=== PATIENT | female | born 1980 | race Caucasian/White ===

== ENCOUNTER 2017-05-20 17:42 | Inpatient (IN) | payer BC, OTHER ==
[~2017-05-20] VITALS: Ht 167.6 cm; Wt 81.6 kg
[~2017-05-20 17:42] MED LIST: GLAT20KI3 SQ
[2017-05-20 18:32] VITALS: BP_SYST 117
--- NOTE | 2017-05-20 20:39 | NUR ---
Patient to bonnie for evaluation. Report given to Ade BENITEZ.
--- NOTE | 2017-05-20 20:43 | NUR ---
Patient to ER C/O MS flare up. States that she was diagnosed with MS in 2003 and is under medical treatment at [facility]. Patient states that she has left side lateral weakness and numbness, states that usualy she is admitted for steroids drip. AAOx4, unlabored breathing, no signs of acute distress.
--- NOTE | 2017-05-20 21:32 | NUR ---
ER MD Dupont at bedside for evaluation
[2017-05-20] MEDS ORDERED: methylPREDNISolone SOD SUCC/PF 62.5 MG/ML VIAL IVP ONE (21:45)
[2017-05-20] MEDS ORDERED: HYDROmorphone 1 MG INJ. 1 MG/ML AMPUL IVP ONE (21:45)
--- NOTE | 2017-05-20 21:57 | NUR ---
Engineering Manager Electronics at bedside for blood draw. Patient identified x2.
--- NOTE | 2017-05-20 22:08 | NUR ---
# 22 gauge angiocath placed to left hand. Use of asceptic technique. Opsite placed over site. Blood return noted. Flushed with 10 cc of normal saline. No evidence of infiltration noted. Patient tolerated well.
[2017-05-20 22:17] LABS: BASOPHILS % (AUTO) 0.4 % (0.0-2.0); EOSINOPHILS # (AUTO) 0.1 K/uL (0.0-0.4); EOSINOPHILS % (AUTO) 0.7 % (0.0-4.0); HEMATOCRIT 43.8 % (36-48); HEMOGLOBIN 14.6 g/dL (12.0-16.0); LYMPHOCYTES # (AUTO) 3.7 K/uL (1.0-5.5); LYMPHOCYTES % (AUTO) 36.6 % (20.5-51.5); MEAN CORPUSCULAR HEMOGLOBIN 31 pg (27-31); MEAN CORPUSCULAR HGB CONC 34 % (32-36); MEAN CORPUSCULAR VOLUME 91 fL (79.0-98.0); MONOCYTES # (AUTO) 0.5 K/uL (0.0-1.0); MONOCYTES % (AUTO) 4.8 % (1.7-9.3); NEUTROPHILS # (AUTO) 5.9 K/uL (1.8-7.7); NEUTROPHILS % (AUTO) 57.5 % (40.0-70.0); PLATELET COUNT (AUTO) 286 K/uL (130-430); RED CELL DISTRIBUTION WIDTH 13.2 % (9.0-15.0); WHITE BLOOD COUNT (AUTO) 10.2 K/uL (4.8-10.8)
--- NOTE | 2017-05-20 23:16 | NUR ---
Patient moved to bed 7
[2017-05-20 23:37] LABS: CALCIUM 8.6 mg/dL (8.4-11.0); CREATININE 0.75 mg/dL (0.55-1.30); POTASSIUM 3.8 mmol/L (3.5-5.1)
[2017-05-20 23:42] LABS: TOTAL BILIRUBIN 0.4 mg/dL (0.0-1.0); TOTAL PROTEIN, SERUM 7.5 g/dL (6.4-8.3)
[2017-05-20] MEDS ORDERED: ZOLP10TA2 PO (23:47)
[2017-05-20] MEDS ORDERED: DOCU283E RC (23:47)
[2017-05-20] MEDS ORDERED: VITD400 PO (23:47)
[2017-05-20 23:57] LABS: ERYTHROCYTE SEDIMENTATION RATE 3 MM/HR (0-20)
--- NOTE | 2017-05-21 00:07 | NUR ---
Patient will be admitted to care of DR PATEL. Admitted to MS IN unit. Will go to room 135. Belongings list completed. Summary report printed. Report will be given at bedside.
--- NOTE | 2017-05-21 00:14 | NUR ---
Transfer to [facility] via ACLS protocol. Licensed nurse present. IV present no signs or symptoms of infiltration.
[2017-05-21] MEDS ORDERED: DIPHENHYDRAMINE INJ 50 MG/ML VIAL IVP PRN (00:15)
[2017-05-21] MEDS ORDERED: methylPREDNISolone SOD SUCC 500 MG/VIAL (Solu-MEDROL) IV ONE (00:15)
[2017-05-21] MEDS ORDERED: DOCUSATE SODIUM 283 MG RC PRN (00:15)
--- NOTE | 2017-05-21 00:30 | NUR ---
Admission Note Pt is A/Ox4, with hx of MS. Pt denies any pain or sob at this time. All new orders discussed with pt. MD Grissom at bedside discussing plan of care with pt. IV intact. VSS. Inventory of belongings completed. Plan of care discussed with pt, pt verbalized understanding. Informed pt that there is a consult for Neuro for this AM. Pt oriented to room, phone, and call light. Safety measures in place, side rails up x2, with bed in lowest, locked position, bed alarm on at all times. Call light in hand. Will continue to monitor.
--- NOTE | 2017-05-21 00:41 | NUR ---
KIRSTEN CON: DATE:05/21/17 TIME:0700 REASON FOR CONS:MS KIRSTEN REQ:DR.HAKAK [place]:ONE[place]
[2017-05-21 01:06] LABS: BILIRUBIN,URINE NEGATIVE (NEGATIVE); BLOOD, URINE NEGATIVE (NEGATIVE); CLARITY/URINE CLEAR (CLEAR); COLOR,URINE YELLOW (YELLOW); GLUCOSE,URINE NEGATIVE (NEGATIVE); KETONES,URINE NEGATIVE (NEGATIVE); LEUKOCYTE ESTERASE ,URINE NEGATIVE (NEGATIVE); NITRITE, URINE NEGATIVE (NEGATIVE); PROTEIN URINE NEGATIVE (NEGATIVE); UROBILINOGEN,URINE 0.2 (0.2-1.0)
[2017-05-21] MEDS: ZOLPIDEM TARTRATE 5 MG TABLET PO PRN ×2 (01:09→23:04)
--- NOTE | 2017-05-21 01:15 | NUR ---
Sleep aid/Nausea Pt requested sleep aid. Pt medicated with Ambien 10mg po as ordered. Pt also requested Zofran for nausea. Covering RN notified and medicated pt with Zofran 4mg IVP for nausea. Snack provided. All needs met at this time. Call light in hand. Will continue to monitor.
[2017-05-21] MEDS: ONDANSETRON HCL 4 MG/2 ML VIAL IVP PRN ×4 (01:17→23:04)
[2017-05-21 01:25] LABS: BARBITURATE, URINE NEGATIVE (NEG <=200); BENZODIAZEPINE, URINE NEGATIVE (NEG <=150); CANNABINOID, URINE NEGATIVE (NEG <=50); COCAINE, URINE NEGATIVE (NEG <=150); METHAMPHETAMINES SCREEN,URINE NEGATIVE (NEG <=500); URINE AMPHETAMINE NEGATIVE (NEG <=500); URINE METHADONE NEGATIVE (NEG <=200)
[2017-05-21 01:26] LABS: OPIATE, URINE POSITIVE (NEG <=100); PHENCYCLIDINE SCREEN,URINE NEGATIVE (NEG <=25); UR TRICYCLIC ANTIDEPRESSANTS NEGATIVE (NEG <=300); URINE OXYCODONE SCREEN NEGATIVE (NEG <=100); URINE PROPOXYPHENE SCREEN NEGATIVE (NEG <=300)
--- NOTE | 2017-05-21 03:30 | NUR ---
PATIENT RESTING: Patient resting quietly. No acute distress noted. Vital signs within normal range.
[2017-05-21] MEDS: methylPREDNISolone SOD SUCC/PF 62.5 MG/ML VIAL IVP SCH ×6 (04:34→23:04)
--- NOTE | 2017-05-21 06:45 | NUR ---
Closing Notes Pt is resting comfortably in bed with no acute distress noted. IV site intact. VSS. All needs met throughout shift. Will endorse care to am nurse. Call light within reach.
[2017-05-21] MEDS: HYDROmorphone 1 MG INJ. 1 MG/ML AMPUL IVP PRN ×5 (07:41→22:19)
[2017-05-21 08:00] VITALS: BP_SYST 128
--- NOTE | 2017-05-21 08:00 | NUR ---
PATIENT A/OX4. NO SIGNS OF DISTRESS NOTED. INSTRUCTED PATIENT TO USE CALL LIGHT FOR NEEDS, BED LOCKED AT THE LOWEST POSITION, BED ALARM IS ON.
[2017-05-21] MEDS ORDERED: GLATIRAMER ACETATE 20 MG/ML SQ SCH (09:00)
--- NOTE | 2017-05-21 10:22 | NUR ---
Patient states that she is not ready to go home. she is no means for transportation to go back home.
[2017-05-21] MEDS: CHOLECALCIFEROL (VITAMIN D-3) 400 UNIT TABLET PO SCH (10:33)
--- NOTE | 2017-05-21 11:52 | NUR ---
Patient states that she kneeled down at the bathroom door. No obvious signs of injuries were noted after checking the body.
--- NOTE | 2017-05-21 12:40 | NUR ---
patient is c/o nausea and vomiting. patient is sat up to prevent aspiration.
[2017-05-21 13:25] VITALS: BP_SYST 133
--- NOTE | 2017-05-21 14:58 | NUR ---
Patient has a shower in a bathroom of 108c. No signs of distress noted.
--- NOTE | 2017-05-21 16:15 | NUR ---
Patient is moved to 103c
[2017-05-21] MEDS ORDERED: DEXTROSE 50% JECT 50 ML DISP.SYRIN IVP PRN (17:45)
[2017-05-21] MEDS ORDERED: PANTOPRAZOLE SODIUM 40 MG/VIAL (PROTONIX) IVP ONE (18:15)
--- NOTE | 2017-05-21 18:30 | NUR ---
Patient is eating dinner, with friends at bedside.
[2017-05-21] MEDS: DIPHENHYDRAMINE INJ 50 MG/ML VIAL IVP PRN (18:34)
[2017-05-21 18:49] VITALS: BP_SYST 131
--- NOTE | 2017-05-21 19:25 | NUR ---
DR. ORDAZ TALKING PATIENT AT BEDSIDE
--- NOTE | 2017-05-21 19:46 | NUR ---
INITIAL NOTE Patient resting on the bed. No acute distress. Respiration even and unlabored. AA x 4. Skin warm and dry to touch. SL intact to left hand, no redness, no swelling. Discussed the safety issue, use call light when need help, and plan of care, verbally understanding. Friend at bedside. Safety measure maintained. Bed in low position, side rails up. Call light within reached. Will continue to monitor.
[2017-05-21 20:00] VITALS: BP_SYST 114
[2017-05-21] MEDS: INSULIN REGULAR, HUMAN 100 UNITS/ML, 10 ML VIAL (novoLIN R) SUBCUT PRN (21:19)
--- NOTE | 2017-05-21 21:23 | NUR ---
RP=248, 6 UNIT OF REGULAR INSULIN GIVEN
--- NOTE | 2017-05-21 22:24 | NUR ---
DILAUDID GIVEN Patient c/o bilateral legs pain 05/06, Dilaudid 1mg IVP given as ordered. No acute distress. Ambulated to bathroom. Safety measure maintained. Call light within reached. Continue to monitor.
--- NOTE | 2017-05-21 23:04 | NUR ---
ZOFRAN AND AMBIEN GIVEN Patient requested Zofran and stated "I want my Zofran because Solu-Medrol make me nausea." Patient also requested Ambien. Zofran 4mg IVP and Ambien 10mg PO given. No acute distress. Safety measure maintained. Bed in low position, side rails up. Call light within reached. Continue to monitor.
--- NOTE | 2017-05-21 23:29 | NUR ---
REPORT GIVEN Released care, report given to EMMANUEL Anaya. Patient resting on the bed and talking to the phone. No acute distress. VS stable. SL intact to left hand, no redness, no swelling. Safety measure maintained. Bed in low position, side rails up. Call light within reached. Will continue the plan of care.
--- NOTE | 2017-05-21 23:30 | NUR ---
RN Note Assumed nursing care of pt after report was obtained from nurse Chrissie. Pt is fully awake, alert and oriented x4. Speech is clear and pt is able to make her needs known. No c/o pain or discomfort at this time. Saline lock is intact in left hand. Skin is warm and dry to touch. No signs or symptoms of hypoglycemia or hyperglycemia noted.
[2017-05-22 00:30] VITALS: BP_SYST 105
[2017-05-22] MEDS: HYDROmorphone 1 MG INJ. 1 MG/ML AMPUL IVP PRN ×5 (01:23→21:10)
--- NOTE | 2017-05-22 01:23 | NUR ---
Pain Medication Dilaudid 1mg was given IV per pt's request for c/o lt leg pain with relief. Addendum: 05/22/17 at 0157 by Jaclyn Bella RN Bed alarm on and three side rails up after IV Dilaudid given. Pt was instructed to call for assistance before getting out of bed because she may become dizzy from the pain medication given. Pt verbalized understanding.
[2017-05-22] MEDS: DIPHENHYDRAMINE INJ 50 MG/ML VIAL IVP PRN (02:16)
--- NOTE | 2017-05-22 02:16 | NUR ---
Itching Benadryl 25mg was given IV for c/o itching with relief.
[2017-05-22] MEDS: methylPREDNISolone SOD SUCC/PF 62.5 MG/ML VIAL IVP SCH ×3 (02:49→10:46)
[2017-05-22 04:23] VITALS: BP_SYST 86
--- NOTE | 2017-05-22 05:00 | NUR ---
Rounds Pt is sleeping without any distress noted. Fall and safety precautions are in place.
[2017-05-22] MEDS: INSULIN REGULAR, HUMAN 100 UNITS/ML, 10 ML VIAL (novoLIN R) SUBCUT PRN ×2 (06:18→21:12)
[2017-05-22 06:42] LABS: CALCIUM 8.9 mg/dL (8.4-11.0); CREATININE 0.75 mg/dL (0.55-1.30); POTASSIUM 4.2 mmol/L (3.5-5.1)
[2017-05-22] MEDS: ONDANSETRON HCL 4 MG/2 ML VIAL IVP PRN ×4 (06:47→21:09)
--- NOTE | 2017-05-22 07:00 | NUR ---
Closing Note Pt is awake and not in any distress. All pt's needs were attended to. No fall or injury noted this shift. Accucheck 153 this AM and 2 units Regular Insulin given SQ. Skin remains warm and dry to touch. Will endorse to day shift nurse.
[2017-05-22] MEDS: PANTOPRAZOLE SODIUM 40 MG/VIAL (PROTONIX) IVP SCH (07:39)
--- NOTE | 2017-05-22 07:49 | NUR ---
PATIENT A/OX4. NO SIGNS OF DISTRESS NOTED. INSTRUCTED PATIENT TO USE CALL LIGHT FOR NEEDS, BED LOCKED AT THE LOWEST POSITION, BED ALARM IS ON.
[2017-05-22] MEDS ORDERED: LORazepam 2 MG/ML VIAL IVP ONE ×2 (08:00→13:00)
[2017-05-22 11:22] VITALS: BP_SYST 114
--- NOTE | 2017-05-22 13:00 | NUR ---
PATIENT STATES 1MG ATIVAN IVP IS NOT CALMING HER DOWN. DR. PATEL IS INFORMED, AND ANOTHER 1MG ATIVAN IVP IS ORDERED AND GIVEN.
--- NOTE | 2017-05-22 13:05 | NUR ---
PATIENT TO MRI SCAN. STATES SHE IS CALMER AFTER 2MG ATIVAN IVP.
[2017-05-22] MEDS: LORazepam 2 MG/ML VIAL ONE ×3 (13:07→13:28)
[2017-05-22] MEDS ORDERED: GADOPENTETATE DIMEGLUMINE 15 ML VIAL IV ONE (13:08)
--- NOTE | 2017-05-22 13:30 | NUR ---
DR. ORDAZ ORDERED MRI OF THE SPINE. WILL CARRY OUT.
--- NOTE | 2017-05-22 16:15 | NUR ---
patient has returned from MRI scan. No signs of distress noted. Will continue to monitor.
[2017-05-22] MEDS: CHOLECALCIFEROL (VITAMIN D-3) 400 UNIT TABLET PO SCH (16:37)
[2017-05-22 17:00] VITALS: BP_SYST 120
[2017-05-22] MEDS ORDERED: ACETAMINOPHEN 325 MG TABLET PO PRN (18:30)
--- NOTE | 2017-05-22 19:56 | NUR ---
Initial PM Note Pt was received lying in bed fully AAO x4. Speech is clear and pt is able to make her needs known. No c/o pain or discomfort. Skin is warm and dry to touch. No signs or symptoms of hypoglycemia or hyperglycemia noted. Saline lock in left wrist is without any signs of infiltration. Fall and safety precautions are in place.
[2017-05-22 20:00] VITALS: BP_SYST 115
--- NOTE | 2017-05-22 21:07 | NUR ---
Blood Sugar Accucheck 158 and 2 units Regular Insulin given SQ. Skin remains warm and dry to touch. Pt ate 100% HS snacks.
--- NOTE | 2017-05-22 21:10 | NUR ---
Pain and Nausea Medications Dilaudid 1mg and Zofran 4mg were given IV per pt's request for c/o left leg pain and nausea with relief. Bed alarm on and three side rails up for pt's safety. Pt was instructed to call for assistance before getting out of bed because she may become dizzy from the pain medication given. Pt verbalized understanding.
[2017-05-23 00:20] VITALS: BP_SYST 132
[2017-05-23] MEDS: HYDROmorphone 1 MG INJ. 1 MG/ML AMPUL IVP PRN ×5 (00:52→22:07)
--- NOTE | 2017-05-23 00:52 | NUR ---
Pain Medication Dilaudid 1mg given IV per pt's request for c/o left leg pain with relief. Bed alarm on and three side rails up for pt's safety. Pt was instructed to call for assistance before getting out of bed because she may become dizzy from the pain medication given. Pt verbalized understanding.
[2017-05-23] MEDS: ZOLPIDEM TARTRATE 5 MG TABLET PO PRN ×2 (01:27→23:34)
--- NOTE | 2017-05-23 01:27 | NUR ---
Insomnia Ambien 10mg given po per pt's request for c/o insomnia with good effect.
--- NOTE | 2017-05-23 03:00 | NUR ---
Rounds Pt is sleeping without any distress noted. Fall and safety precautions are in place.
[2017-05-23 04:45] VITALS: BP_SYST 93
--- NOTE | 2017-05-23 05:00 | NUR ---
Rounds Pt is sleeping comfortably in bed.
--- NOTE | 2017-05-23 06:21 | NUR ---
Closing Note Pt is awake and not in any distress. All pt's needs were attended to. No fall or injury noted this shift. Will endorse to day shift nurse.
[2017-05-23] MEDS: PANTOPRAZOLE SODIUM 40 MG/VIAL (PROTONIX) IVP SCH (10:09)
[2017-05-23] MEDS: CHOLECALCIFEROL (VITAMIN D-3) 400 UNIT TABLET PO SCH (10:17)
[2017-05-23 10:20] VITALS: BP_SYST 132
[2017-05-23] MEDS: ONDANSETRON HCL 4 MG/2 ML VIAL IVP PRN ×3 (12:24→22:18)
[2017-05-23] MEDS: methylPREDNISolone SOD SUCC/PF 62.5 MG/ML VIAL IVP SCH ×2 (12:24→20:22)
[2017-05-23 16:00] VITALS: BP_SYST 130
[2017-05-23] MEDS ORDERED: IBUPROFEN 400 MG TABLET PO PRN ×2 (17:30)
--- NOTE | 2017-05-23 18:50 | NUR ---
GOLYTELY ADMINISTERED LATE DUE TO PT INSISTING ON GOING TO HER VEHICLE OUTSIDE IN PARKING LOT PRIOR TO STARTING GOLYETLY.
[2017-05-23 20:20] VITALS: BP_SYST 124
--- NOTE | 2017-05-23 20:30 | NUR ---
opening note Report was endorsed to me by day nurse at bedside. Patient is awake and laying in bed. No signs of distress. Breathing is equal and unlabored. educated on colonoscopy prep fluid, and call light for assitance. Patient is refusing bed alarm at this time. Will continue to monitor.
--- NOTE | 2017-05-23 22:00 | NUR ---
Medication Patients scheduled medication given. Patient is also complains of pain medicated as order please see emar. Patient educated recreation program coordinator light for safety patient is being non compliant with call light. Patient is also refusing bed alarm to at this time. patients breathing is equal and non labored. Will continue to monitor.
--- NOTE | 2017-05-23 23:35 | NUR ---
Medication Patient is requesting sleeping medication medicated as order. Patient educated on safety and call light but is being on compliant with call light. Patient shows no signs of labored breathing. Will continue to monitor. Patient is close to nurses station.
[2017-05-24] VITALS (7 sets, daily range): BP systolic 100–130
[2017-05-24] MEDS: HYDROmorphone 1 MG INJ. 1 MG/ML AMPUL IVP PRN ×5 (02:03→20:19)
--- NOTE | 2017-05-24 02:08 | NUR ---
Pain medication Patient is requesting pain medication medicated as ordered. Patient shows no signs of distress breathing is equal and non labored. Educated patient tax commissioner light and safety patient is refusing bed alarm. Will continue to monitor.
--- NOTE | 2017-05-24 04:21 | NUR ---
MEDICATION Patients scheduled medication given per order please see EMAR patient is awake and laying in bed.Patient is refusing bed alarm at this time , breathing is equal and non labored. Patient has call light with her. will continue to monitor
[2017-05-24] MEDS: methylPREDNISolone SOD SUCC/PF 62.5 MG/ML VIAL IVP SCH ×3 (04:29→20:22)
[2017-05-24] MEDS: DIPHENHYDRAMINE INJ 50 MG/ML VIAL IVP PRN ×2 (04:38→21:53)
--- NOTE | 2017-05-24 06:35 | NUR ---
CLOSING NOTE/ACCU CHECK patients blood sugar checked please see EMAR.Patient is laying in bed with eyes closed visible chest rise and fall. breathing is non labored, and even. no signs of distress at this time. Patient has call light with her, refusing bed alarm, bed is in lowest position close to nursing station. Will endorse report to day nurse at bed side.
[2017-05-24 07:25] LABS: CALCIUM 8.4 mg/dL (8.4-11.0); CREATININE 0.79 mg/dL (0.55-1.30); POTASSIUM 3.8 mmol/L (3.5-5.1)
--- NOTE | 2017-05-24 08:00 | NUR ---
note PT ASLEEP, DOES NOT WANT TO BE DISTURBED AT THIS TIME. STATES THIS IS THE FIRST TIME SHE HAS BEEN ABLE TO SLEEP THROUGH THE NIGHT. NO BREAKFAST TRAY, STATES SHE DOES NOT WANT ONE. NO SOB/RESP DISTRESS OR PAIN/DISCOMFORT NOTED AT THIS TIME. IV IN LEFT WRIST INTACT AND PATENT AT THIS TIME. BED IN LOW POSITION AT THIS TIME. CALL LIGHT WITHIN REACH.
[2017-05-24] MEDS: PANTOPRAZOLE SODIUM 40 MG/VIAL (PROTONIX) IVP SCH (09:13)
[2017-05-24] MEDS: CHOLECALCIFEROL (VITAMIN D-3) 400 UNIT TABLET PO SCH (09:14)
[2017-05-24] MEDS: ONDANSETRON HCL 4 MG/2 ML VIAL IVP PRN ×2 (09:22→15:50)
--- NOTE | 2017-05-24 10:00 | NUR ---
NOTE PT DROWSY AND SLEEPY IN BED, EASILY AROUSABLE. PT REC'D PAIN IVP MEDICATION REQUESTED. NO NEEDS NOTED AT THIS TIME. CALL LIGHT WITHIN REACH.
--- NOTE | 2017-05-24 12:30 | NUR ---
NOTE PT AMBULATING IN THE ROOM, AAOX4. NO SOB/RESP DISTRESS NOTED. PAIN MEDICATION REQUESTED AND WAS GIVEN AT THIS TIME. PT'S FATHER AT BEDSIDE AT THIS TIME VISITING. PT SITTING AT SIDE OF BED AND EATING HER LUNCH TRAY. NO NEEDS NOTED. CALL LIGHT WITHIN REACH.
[2017-05-24] MEDS ORDERED: OXYCODONE/ACETAMINOPHEN 5-325 TABLET PO PRN (13:45)
--- NOTE | 2017-05-24 13:45 | NUR ---
NOTE DR PATEL AT PT'S BEDSIDE. QUESTIONS/CONCERNS FROM PT AND PT'S FATHER WERE ANSWERED AT THIS TIME. PT SITTING UP IN BED FINISHING HER LUNCH AND NO NEEDS NOTED AT THIS TIME. CALL LIGHT WITHIN REACH.
[2017-05-24] MEDS ORDERED: DOCUSATE SODIUM 250 MG CAPSULE PO ONE (14:15)
--- NOTE | 2017-05-24 14:56 | NUR ---
NEURO SURGEON CONSULT CALLED TO DR COOMBS, DR ELDER RADIO INTERFERENCE INVESTIGATOR RE; DISC PROTRUSION. SPOKE TO KATHLEEN
--- NOTE | 2017-05-24 15:15 | NUR ---
NOTE DR ELDER WHO IN COVERING FOR DR COOMBS CALLED AND UPDATE ON PT'S STATUS WAS GIVEN. DR ELDER WILL COME TO SEE PT TOMORROW. PT WAS NOTIFIED AT THIS TIME. PT HAS 2 VISITORS AT BEDSIDE AT THIS TIME. CALL LIGHT WITHIN REACH.
--- NOTE | 2017-05-24 17:15 | NUR ---
NOTE PT SITTING UP IN BED TALKING ON THE PHONE. NO SOB/RESP DISTRESS OR PAIN/DISCOMFORT NOTED. CALL LIGHT WITHIN REACH.
--- NOTE | 2017-05-24 18:10 | NUR ---
note PT SITTING UP IN BED EATING HER DINNER AND TALKING ON THE PHONE. PAIN TOLERABLE AT THIS TIME. NO SOB/RESP DISTRESS NOTED. PT AMBULATES IN ROOM WITH STEADY GAIT. NO NEEDS NOTED. CALL LIGHT WITHIN REACH.
--- NOTE | 2017-05-24 19:15 | NUR ---
change of shift.pt.presents stable status.no c/o ,nausea.room air:o2 breathing pattern stable. call ligth w/in the pt's reach.
--- NOTE | 2017-05-24 20:00 | NUR ---
pt.assessed.v/s assessed.values w/in normal limits.i conveyed to pt.snacks are available pt.pita kirby. i have provided the snacks.
--- NOTE | 2017-05-24 20:30 | NUR ---
pt.assessed.blood glucose assessed;155mg/dl.pt.requested pain medication:i have administered: dilaudid:1mg ivp.call light w/in the pt's reach.
[2017-05-24] MEDS: DOCUSATE SODIUM 250 MG CAPSULE PO SCH (20:34)
--- NOTE | 2017-05-24 21:00 | NUR ---
2100p medications administered.pt.requesting fabi.will f/u w/the request.no other request@this hour.
[2017-05-24] MEDS: ZOLPIDEM TARTRATE 5 MG TABLET PO PRN (21:54)
[2017-05-24] MEDS: INSULIN REGULAR, HUMAN 100 UNITS/ML, 10 ML VIAL (novoLIN R) SUBCUT PRN (21:59)
--- NOTE | 2017-05-24 22:00 | NUR ---
pt.assessed.i have administered insulin:2units;regular per sliding scale;155mg/dl. pt.had entered the rest room earlier and i had to attend to another pt.delay in insulin administration.
--- NOTE | 2017-05-25 | NUR ---
pt.assessed.v/s assessed:values w/in normal limits:pt.re-positioned self.no c/o pain,nausea. no distress/discomfort manifested.call light w/in the pt's reach.
[2017-05-25 00:23] VITALS: BP_SYST 110
[2017-05-25] MEDS: HYDROmorphone 1 MG INJ. 1 MG/ML AMPUL IVP PRN ×3 (01:44→11:31)
--- NOTE | 2017-05-25 01:45 | NUR ---
pt.requested dilaudid:.i have administered dilaudid;1mg ivp.to f/u re:pain efficacy per pain mgx protocol/policy.no other request@this hour.
[2017-05-25] MEDS: DIPHENHYDRAMINE INJ 50 MG/ML VIAL IVP PRN ×2 (03:55→08:45)
--- NOTE | 2017-05-25 04:00 | NUR ---
pt.assessed.i have assessed vs;values w/in normal limits.pt.requested benadryl:i have administered benadryl: 25mg ivp solumedrol:ivp administered:due @0400am.no requests@this hour.pt.utlizing cell-phone.call light w/in pt's reach.
[2017-05-25] MEDS: methylPREDNISolone SOD SUCC/PF 62.5 MG/ML VIAL IVP SCH (04:02)
[2017-05-25 04:04] VITALS: BP_SYST 119
--- NOTE | 2017-05-25 06:00 | NUR ---
pt.assessed.pt.presents stable status.pt.presents anxious affect.no c/o pain,nausea. pt.utilizing the cell phone.blood glucose:144mg/dl reiterated to the pt.that blood glucose: <150mg/dl no insulin to be administered.no request@this hour.call light w/in the pt's reach.
[2017-05-25 07:45] VITALS: BP_SYST 119
--- NOTE | 2017-05-25 07:47 | NUR ---
Initial Note Pt was received lying in bed fully AAO x4. Speech is clear and pt is able to make her needs known.c/o pain pain medication is given as ordered. Skin is warm and dry to touch. No signs or symptoms of hypoglycemia or hyperglycemia noted. Saline lock in left wrist is without any signs of infiltration. Fall and safety precautions are in place.
--- NOTE | 2017-05-25 08:00 | NUR ---
NOTE Pt was upset with pt shouting out all night, wants to move room. Pt was transferred to rm 129B with all belongings. pt was reoriented to room and nursing routines and procedures. Pt has her phone and call light within reach at this time. No sob/resp distress noted.
[2017-05-25 08:26] LABS: CALCIUM 8.6 mg/dL (8.4-11.0)
[2017-05-25] MEDS: DOCUSATE SODIUM 250 MG CAPSULE PO SCH (08:26)
[2017-05-25] MEDS: PANTOPRAZOLE SODIUM 40 MG/VIAL (PROTONIX) IVP SCH (08:27)
[2017-05-25] MEDS: CHOLECALCIFEROL (VITAMIN D-3) 400 UNIT TABLET PO SCH (08:44)
--- NOTE | 2017-05-25 09:32 | NUR ---
Nutrition Update Rj Scale 18 noted. Pt admitted for multiple sclerosis relapse. Diet: regular BMI: 29.1 kg/m2 RD to follow per nutrition care standards.
--- NOTE | 2017-05-25 10:00 | NUR ---
Note Pt worked with physical therapy on ambulation and was evaluated at this time. Pt was given all her morning PO medications. Pain medication was given and pain tolerable at this time. Pt did her self hygiene care and is sitting up in bed eating her breakfast at this time. Pt denies any needs at this time. Call light within reach at this time. IV in left wrist has been intact and patent all shift.
[2017-05-25] MEDS ORDERED: PREDNISONE 20 MG TABLET PO ONE (11:00)
--- NOTE | 2017-05-25 11:05 | NUR ---
NOTE PT WAS SEEN BY DR PATEL - QUESTIONS/CONCERNS WERE ANSWERED. PT SPOKE TO DR PATEL ABOUT HER DISCHARGE MEDICATIONS. DR PATEL SPOKE TO DR ORDAZ ABOUT PT DISCHARGE WELL. PT SITTING UP IN BED IN ROOM. NO NEEDS NOTED AT THIS TIME. CALL LIGHT WITHIN REACH.
[2017-05-25 12:23] VITALS: BP_SYST 125
[2017-05-25 12:38] VITALS: BP_SYST 127
[2017-05-25] MEDS: ONDANSETRON HCL 4 MG/2 ML VIAL IVP PRN (12:59)
--- NOTE | 2017-05-25 13:00 | NUR ---
NOTE DR ELDER ASSESSED PT AND SPOKE TO DR PATEL. PT DISCHARGED PER MD ORDERS. PT INFORMED AND ALL MEDICATIONS WERE GIVEN REQUESTED AND SCHEDULED AT THIS TIME. PAIN TOLERABLE AT THIS TIME. PT REC'D HER PRESCRIPTIONS AND THEY WERE SENT TO PHARMACY WITH PT'S FRIEND TO BE FILLED AT THIS TIME. PT TALKING ON THE PHONE AT THIS TIME. PT'S FRIEND AT BEDSIDE. CALL LIGHT WITHIN REACH.
--- NOTE | 2017-05-25 13:40 | NUR ---
NOTE PT'S IV WAS DC'D. PT WAS GIVEN DISCHARGE INSTRUCTIONS AND QUESTIONS/CONCERNS WERE ANSWERED AT THIS TIME. PT AND HER FRIEND PACKED ALL BELONGINGS, CHECKED SIDE TABLE/DRAWERS FOR BELONGINGS. PT DRESSED IN STREET CLOTHES. PT OFF THE FLOOR VIA WHEELCHAIR WITH ALL HER BELONGINGS. PT'S FRIEND AT SIDE PT LEFT THE FLOOR TO PRIVATE CAR. NO NEEDS NOTED. NO SOB/RESP DISTRESS OR PAIN/DISCOMFORT OR NAUSEA/EMESIS NOTED AT THIS TIME. PT STABLE AT THIS TIME.
[2017-05-26] MEDS ORDERED: CHOLECALCIFEROL (VITAMIN D3) 2,000 UNIT TABLET PO SCH (09:00)
== END 2017-05-25 13:40 | disposition home or self-care (01) | DRG 552 ==
LOC: SED 17:42 → SMU 05-21 00:09
PROVIDERS: ADMIT Internal Medicine; ATTEND Internal Medicine
DX: M47.817 Spondylosis without myelopathy or radiculopathy, lumbosacral region (principal); G35 Multiple sclerosis; G43.909 Migraine, unspecified, not intractable, without status migrainosus; F43.10 Post-traumatic stress disorder, unspecified; Z91.010 Allergy to peanuts; Z88.8 Allergy status to other drugs, medicaments and biological substances; Z88.5 Allergy status to narcotic agent; Z91.018 Allergy to other foods; Z79.899 Other long term (current) drug therapy; Z82.0 Family history of epilepsy and other diseases of the nervous system
CPT/HCPCS: 36415; 70553; 72156; 72157; 72158; 80048; 80053; 80307; 81003; 81025; 82306; 82962; 84702-TC; 85025; 85651-TC; 93971; 96374; 96375; 99285; A9579; C9113; J1170; J1200; J1815; J2060; J2405; J2930; J7512

== ENCOUNTER 2017-05-27 15:25 | Outpatient (CLI) | payer BC, OTHER ==
[~2017-05-27 15:25] MED LIST changes: +DOCU283E RC; +VITD400 PO; +ZOLP10TA2 PO
== END 2017-05-27 19:23 | disposition home or self-care (01) ==
LOC: SRD 15:25
PROVIDERS: ATTEND Internal Medicine
DX: S92.902A Unspecified fracture of left foot, initial encounter for closed fracture (principal); X58.XXXA Exposure to other specified factors, initial encounter; Y93.89 Activity, other specified; Y92.89 Other specified places as the place of occurrence of the external cause; Y99.8 Other external cause status

== ENCOUNTER 2019-09-09 17:16 | Inpatient (IN) | payer BC, OTHER ==
[~2019-09-09] VITALS: Ht 167.6 cm; Wt 74.8 kg
[2019-09-09 17:30] VITALS: BP_SYST 124
[2019-09-09 19:32] LABS: BASOPHILS % (AUTO) 0.4 % (0.0-2.0); EOSINOPHILS # (AUTO) 0.1 K/uL (0.0-0.4); EOSINOPHILS % (AUTO) 1.8 % (0.0-4.0); HEMATOCRIT 40.9 % (36-48); HEMOGLOBIN 13.9 g/dL (12.0-16.0); LYMPHOCYTES # (AUTO) 3.4 K/uL (1.0-5.5); LYMPHOCYTES % (AUTO) 42.3 % (20.5-51.5); MEAN CORPUSCULAR HEMOGLOBIN 32 pg (27-31); MEAN CORPUSCULAR HGB CONC 34 % (32-36); MEAN CORPUSCULAR VOLUME 94 fL (79.0-98.0); MONOCYTES # (AUTO) 0.4 K/uL (0.0-1.0); MONOCYTES % (AUTO) 4.6 % (1.7-9.3); NEUTROPHILS # (AUTO) 4.1 K/uL (1.8-7.7); NEUTROPHILS % (AUTO) 50.9 % (40.0-70.0); PLATELET COUNT (AUTO) 327 K/uL (130-430); RED BLOOD CELL COUNT(AUTO) 4.36 MIL/uL (4.2-6.2); RED CELL DISTRIBUTION WIDTH 13.7 % (9.0-15.0)
[2019-09-09 19:42] LABS: CALCIUM 9.1 mg/dL (8.4-11.0); CREATININE 0.81 mg/dL (0.55-1.30)
[2019-09-09 19:47] LABS: INR 0.9 (0.8-1.2); PROTHROMBIN TIME 9.3 SECS (9.5-12.5)
[2019-09-09 19:52] LABS: ALBUMIN 4.1 g/dL (3.4-4.8); TOTAL BILIRUBIN 0.3 mg/dL (0.0-1.0)
[2019-09-09 20:16] LABS: ERYTHROCYTE SEDIMENTATION RATE 8 MM/HR (0-20)
[2019-09-09] MEDS ORDERED: methylPREDNISolone SOD SUCC 500 MG/VIAL (Solu-MEDROL) IV ONE (21:00)
[2019-09-09 21:58] LABS: BILIRUBIN,URINE NEGATIVE (NEGATIVE); BLOOD, URINE 1+ (NEGATIVE); CLARITY/URINE CLEAR (CLEAR); COLOR,URINE YELLOW (YELLOW); GLUCOSE,URINE NEGATIVE (NEGATIVE); KETONES,URINE NEGATIVE (NEGATIVE); LEUKOCYTE ESTERASE ,URINE TRACE (NEGATIVE); NITRITE, URINE NEGATIVE (NEGATIVE); PROTEIN URINE NEGATIVE (NEGATIVE); UROBILINOGEN,URINE 0.2 (0.2-1.0)
[2019-09-09 22:04] LABS: BACTERIA,URINE FEW /HPF (None Seen); RBC,URINE 0-3 /HPF (0-3); WBC,URINE 0-3 /HPF (0-3)
[2019-09-09 22:05] LABS: MUCUS,URINE None Seen /LPF (None Seen)
[2019-09-09] MEDS ORDERED: HYDROcodone/ACETAMIN 10-325 MG TAB PO PRN (23:15)
[2019-09-09] MEDS ORDERED: DOCUSATE SODIUM 283 MG RC PRN (23:15)
[2019-09-09] MEDS ORDERED: ACETAMINOPHEN 325 MG TABLET PO PRN (23:15)
[2019-09-09] MEDS ORDERED: HYDROcodone/ACETAMIN 5-325 MG TAB (NORCO/ VICODIN) PO PRN (23:15)
[2019-09-09] MEDS ORDERED: ZOLPIDEM TARTRATE 5 MG TABLET PO SCH (23:15)
[2019-09-10] MEDS ORDERED: methylPREDNISolone SOD SUCC/PF 62.5 MG/ML VIAL IVP ONE
[2019-09-10] MEDS ORDERED: LORazepam 2 MG/ML VIAL IVP ONE
[2019-09-10 01:12] VITALS: BP_SYST 107
[2019-09-10] MEDS: LORazepam 2 MG/ML VIAL IVP PRN ×4 (05:34→20:47)
[2019-09-10] MEDS: NORMAL SALINE 5 ML DISP.SYRIN IVF SCH ×4 (06:00→23:24)
[2019-09-10 06:30] LABS: BASOPHILS % (AUTO) 0.2 % (0.0-2.0); HEMATOCRIT 40.9 % (36-48); HEMOGLOBIN 13.9 g/dL (12.0-16.0); MEAN CORPUSCULAR HEMOGLOBIN 32 pg (27-31); MEAN CORPUSCULAR HGB CONC 34 % (32-36); MEAN CORPUSCULAR VOLUME 94 fL (79.0-98.0); MONOCYTES # (AUTO) 0.1 K/uL (0.0-1.0); MONOCYTES % (AUTO) 0.6 % (1.7-9.3); NEUTROPHILS # (AUTO) 7.9 K/uL (1.8-7.7); NEUTROPHILS % (AUTO) 88.2 % (40.0-70.0); PLATELET COUNT (AUTO) 327 K/uL (130-430); RED BLOOD CELL COUNT(AUTO) 4.37 MIL/uL (4.2-6.2); RED CELL DISTRIBUTION WIDTH 13.6 % (9.0-15.0); WHITE BLOOD COUNT (AUTO) 8.9 K/uL (4.8-10.8)
[2019-09-10 06:44] LABS: CALCIUM 8.6 mg/dL (8.4-11.0); CREATININE 0.77 mg/dL (0.55-1.30); POTASSIUM 3.8 mmol/L (3.5-5.1)
[2019-09-10 08:00] VITALS: BP_SYST 95
[2019-09-10] MEDS ORDERED: CHOLECALCIFEROL (VITAMIN D-3) 400 UNIT TABLET PO SCH (09:00)
[2019-09-10] MEDS ORDERED: GLATIRAMER ACETATE 20 MG/ML SQ SCH (09:00)
[2019-09-10] MEDS: methylPREDNISolone SOD SUCC/PF 62.5 MG/ML VIAL IVP SCH ×2 (09:38→22:04)
[2019-09-10] MEDS ORDERED: HYDROmorphone 1 MG INJ. 1 MG/ML AMPUL IVP ONE ×2 (13:15→20:15)
[2019-09-10] MEDS: ONDANSETRON HCL 4 MG/2 ML VIAL IVP PRN ×2 (14:53→20:48)
[2019-09-10 20:00] VITALS: BP_SYST 124
[2019-09-10] MEDS ORDERED: INSULIN REGULAR, HUMAN 100 UNITS/ML, 10 ML VIAL (humuLIN R) SUBCUT PRN (21:15)
[2019-09-10] MEDS ORDERED: KETOROLAC TROMETHAMINE 30 MG VIAL IVP PRN (23:15)
[2019-09-11 00:13] VITALS: BP_SYST 102
[2019-09-11 04:30] VITALS: BP_SYST 107
[2019-09-11] MEDS: LORazepam 2 MG/ML VIAL IVP PRN ×4 (04:30→16:56)
[2019-09-11] MEDS: ONDANSETRON HCL 4 MG/2 ML VIAL IVP PRN ×4 (04:32→16:55)
[2019-09-11] MEDS: HYDROmorphone 1 MG INJ. 1 MG/ML AMPUL IVP PRN ×4 (04:33→16:56)
[2019-09-11] MEDS: NORMAL SALINE 5 ML DISP.SYRIN IVF SCH ×2 (06:35→13:42)
[2019-09-11 06:55] LABS: BASOPHILS % (AUTO) 0.1 % (0.0-2.0); HEMATOCRIT 39.7 % (36-48); HEMOGLOBIN 13.7 g/dL (12.0-16.0); LYMPHOCYTES # (AUTO) 1.2 K/uL (1.0-5.5); MEAN CORPUSCULAR HEMOGLOBIN 32 pg (27-31); MEAN CORPUSCULAR HGB CONC 34 % (32-36); MEAN CORPUSCULAR VOLUME 93 fL (79.0-98.0); MONOCYTES # (AUTO) 0.2 K/uL (0.0-1.0); MONOCYTES % (AUTO) 1.7 % (1.7-9.3); NEUTROPHILS # (AUTO) 10.1 K/uL (1.8-7.7); NEUTROPHILS % (AUTO) 88.2 % (40.0-70.0); PLATELET COUNT (AUTO) 361 K/uL (130-430); RED BLOOD CELL COUNT(AUTO) 4.26 MIL/uL (4.2-6.2); RED CELL DISTRIBUTION WIDTH 13.4 % (9.0-15.0); WHITE BLOOD COUNT (AUTO) 11.5 K/uL (4.8-10.8)
[2019-09-11 07:01] LABS: CALCIUM 8.7 mg/dL (8.4-11.0); CREATININE 0.73 mg/dL (0.55-1.30); POTASSIUM 4.3 mmol/L (3.5-5.1)
[2019-09-11 08:00] VITALS: BP_SYST 107
[2019-09-11] MEDS: methylPREDNISolone SOD SUCC/PF 62.5 MG/ML VIAL IVP SCH (09:03)
[2019-09-11] MEDS ORDERED: GADOPENTETATE DIMEGLUMINE 15 ML VIAL IV ONE (09:55)
[2019-09-11 11:18] VITALS: BP_SYST 117
[2019-09-11] MEDS ORDERED: methylPREDNISolone SOD SUCC/PF 62.5 MG/ML VIAL IVP ONE (13:15)
[2019-09-11] MEDS ORDERED: LORA-259 PO (15:06)
[2019-09-11] MEDS ORDERED: ONDA4TAB5 PO (15:06)
[2019-09-11 16:04] VITALS: BP_SYST 117
== END 2019-09-11 19:30 | disposition home or self-care (01) | DRG 60 ==
LOC: SED 17:16 → SMU 21:34
PROVIDERS: ADMIT Preventive Medicine Preventive Medicine/Occupational Environmental Medicine; ATTEND Preventive Medicine Preventive Medicine/Occupational Environmental Medicine
DX: G35 Multiple sclerosis (principal); E55.9 Vitamin D deficiency, unspecified; G47.00 Insomnia, unspecified; J32.9 Chronic sinusitis, unspecified; Z88.5 Allergy status to narcotic agent; Z91.018 Allergy to other foods; Z88.8 Allergy status to other drugs, medicaments and biological substances; Z91.010 Allergy to peanuts
CPT/HCPCS: 36415; 70450-TC; 70553; 80048; 80053; 81000-TC; 82962; 83605; 84439; 85025; 85610-TC; 85651-TC; 87040-TC; 96374; 96375; 97116-GP; 97530-GP; 99285; A9579; J1170; J1815; J2060; J2405; J2930